=== PATIENT | female | born 2000 | race Caucasian/White ===

== ENCOUNTER 2022-11-08 09:10 | Emergency (ER) | payer BC | END 2022-11-08 10:45 | disposition home or self-care (01) | LOC: FB.ED 09:10 | DX: S06.0X0A Concussion without loss of consciousness, initial encounter (principal); S00.03XA Contusion of scalp, initial encounter; W00.0XXA Fall on same level due to ice and snow, initial encounter | CPT/HCPCS: 70450; 99283 ==